=== PATIENT | male | born 1990 | race African-American/Black ===

== ENCOUNTER 2022-01-23 09:54 | Emergency (ER) | payer OTHER ==
[~2022-01-23] VITALS: Ht 170.2 cm; Wt 83.0 kg
[2022-01-23 10:15] VITALS: BP 139/84
[2022-01-23] MEDS ORDERED: ONDANSETRON ODT 4 MG TAB.RAPDIS PO ONE (10:30)
[2022-01-23] MEDS ORDERED: ONDA4TAB12 PO (11:23)
--- NOTE | 2022-01-23 11:24 | PHYS DOC ---
Past History Additional Past Medical Histor: PTSD, Lupos (CAMPOS MCNAIR APRN) Past Surgical History: No Surgical History (CAMPOS MCNAIR APRN) Alcohol Use: None (CAMPOS MCNAIR APRN) General Adult EDM: Chief Complaint: NAUSEA/VOMITING/DIARRHEA HPI: HPI: Patient is a 31-year-old male who presents with nausea and vomiting for 3 days. Patient was just recently used from assisted and moved into the [facility]. Patient states "whenever I get stressed out I will have episodes of nausea and vomiting". "My sister just a couple of days ago". Patient's been unable to keep down food but some liquids. Denies fever, abdominal pain, diarrhea. Patient is a history of lupus, schizophrenia, anxiety depression. (CAMPOS MCNAIR APRN) Review of Systems: Review of Systems: ROS At least 10 ROS systems have been reviewed and are negative except as documented in the HPI. General: Negative except as outlined in HPI above. Skin: Negative except as outlined in HPI above. HEENT: Negative except as outlined in HPI above. Neck: Negative except as outlined in HPI above. Respiratory: Negative except as outlined in HPI above.. Cardiovascular: Negative except as outlined in HPI above. Abdomen: Negative except as outlined in HPI above. : Negative except as outlined in HPI above. Back/MSK: Negative except as outlined in HPI above. Neuro: Negative except as outlined in HPI above. Psych: Negative except as outlined in HPI above. (CAMPOS MCNAIR APRN) Current Medications: Current Meds: Current Medications Medications (Trade) Dose Ordered Sig/Barbara Start Time Stop Time Status Last Admin Dose Admin Ondansetron HCl (Zofran Odt) 4 mg 1X ONCE 01/23/22 10:30 01/23/22 10:31 DC 01/23/22 10:26 4 MG (CAMPOS MCNAIR APRN) Allergies: Allergies: Allergies Coded Allergies Type Severity Reaction Last Updated Verified No Known Drug Allergies 01/23/22 No (CAMPOS MCNAIR APRN) Physical Exam: PE: Constitutional: Well developed, well nourished, no acute distress, non-toxic appearance. [] HENT: Normocephalic, atraumatic, bilateral external ears normal, oropharynx moist, no oral exudates, nose normal. [] Eyes: PERRLA, EOMI, conjunctiva normal, no discharge. [] Neck: Normal range of motion, no tenderness, supple, no stridor. [] Cardiovascular:Heart rate regular rhythm, no murmur [] Lungs & Thorax: Bilateral breath sounds clear to auscultation [] Abdomen: Bowel sounds normal, soft, no tenderness, no masses, no pulsatile masses. [] Skin: Warm, dry, no erythema, no rash. [] Back: No tenderness, no CVA tenderness. [] Extremities: No tenderness, no cyanosis, no clubbing, ROM intact, no edema. [] Neurologic: Alert and oriented X 3, normal motor function, normal sensory function, no focal deficits noted. [] Psychologic: Affect normal, judgement normal, mood normal. [] (CAMPOS MCNAIR APRN) Current Patient Data: Vital Signs: Vital Signs Date Time Temp Pulse Resp B/P (MAP) Pulse Ox O2 Delivery O2 Flow Rate FiO2 01/23/22 10:15 98.8 84 16 139/84 (102) 99 Room Air (CAMPOS MCNAIR APRN) EKG: EKG: [] (CAMPOS MCNAIR APRN) Radiology/Procedures: Radiology/Procedures: [] (CAMPOS MCNAIR APRN) Heart Score: C/O Chest Pain: No Risk Factors: Risk Factors: DM, Current or recent (<one month) smoker, HTN, HLP, family hi story of CAD, obesity. Risk Scores: Score 0 - 3: 2.5% MACE over next 6 weeks - Discharge Home Score 4 - 6: 20.3% MACE over next 6 weeks - Admit for Clinical Observation Score 7 - 10: 72.7% MACE over next 6 weeks - Early Invasive Strategies (CAMPOS MCNAIR APRN) Course & Med Decision Making: Course & Med Decision Making Pertinent Labs and Imaging studies reviewed. (See chart for details) [] 31-year-old male presents with nausea and vomiting for 3 days. Afebrile. Denies pain. Patient states that when he gets stressed out that he has episodes of vomiting. Patient sister 3 days ago and he also just moved into the [facility] from being released from assisted. Patient was given Zofran while in the ER which improved symptoms. Patient passed p.o. challenge. I sent patient home with Zofran. Patient's vomiting is most likely related to recent loss of his sister and changes with living situation. Patient also has history of schizophrenia, anxiety and depression. Discussed return precautions in length. Patient verbalized understanding of discharge instructions. (CAMPOS MCNAIR APRN) Course & Med Decision Making I was attending physician during date of service. LAP LAYER saw and treated patient independently. Although I was present in the department, no assistance was requested prior to patient departure. Electronically signed, Slim Renteria DO (SLIM RENTERIA DO) Elicia Disclaimer: Elicia Disclaimer: This electronic medical record was generated, in whole or in part, using a voice recognition dictation system. (CAMPOS MCNAIR APRN) Departure Departure: Impression: Primary Impression: Nausea and vomiting Qualified Codes: R11.2 - Nausea with vomiting, unspecified Disposition: 01 HOME / SELF CARE / HOMELESS Condition: STABLE Referrals: PCP,NO (PCP) Patient Instructions: Nausea and Vomiting, [id number] Additional Instructions: You were seen in the emergency room for nausea and vomiting. You were given Zofran while in the ER, which improved your symptoms. You were able to keep down fluids while in the ER. You home with a prescription for Zofran. Please take as directed. Please return to emergency room with worsening symptoms or concerns. EMERGENCY DEPARTMENT GENERAL DISCHARGE INSTRUCTIONS Thank you for coming to [facility] (ED) today and trusting us with you care. We trust that you had a positivie experience in our Emergency Department. If you wish to speak to the department management, you may call the director at [phone]. YOUR FOLLOW UP INSTRUCTIONS ARE FOLLOWS: 1. Do you have a private Doctor? If you do not have a private doctor, please ask for a resource list of physicians or clinics that may be able to assist you with follow up care. 2. The Emergency Physician has interpreted your x-rays. The X-Ray specialist will also review them. If there is a change in the findings, you will be notified in 48 hours when at all possible. 3. A lab test or culture has been done, your results will be reviewed and you will be notified if you need a change in treatment. ADDITIONAL INSTRUCTIONS AND INFORMATION: 1. Your care today has been supervised by a physician who is specially trained in emergency care. Many problems require more than one evaluation for a complete diagnosis and treatment. We recommend that you schedule your follow up appointment as recommended to ensure complete treatment of you illness or injury. If you are unable to obtain follow up care and continue to have a problem, or if your condition worsens, we recommend that you return to the ED. 2. We are not able to safely determine your condition over the phone nor are we able to give sound medical advice over the phone. For these safety reasons, if you call for medical advice we will ask you to come to the ED for further evaluation. 3. If you have any questions regarding these discharge instructions please call the ED at [phone]. SAFETY INFORMATION: In the interest of safety, wellness, and injury prevention; we encourage you to wear your sealbelt, if you smoke; quite smoking, and we encourage family to use a protec tive helmet for bicycling and other sporting events that present an increased risk for head injury. IF YOUR SYMPTOMS WORSEN OR NEW SYMPTOMS DEVELOP, OR YOU HAVE CONCERNS ABOUT YOUR CONDITION; OR IF YOUR CONDITION WORSENS WHILE YOU ARE WAITING FOR YOUR FOLLOW UP APPOINTMENT; EITHER CONTACT YOUR PRIMARY CARE DOCTOR, THE PHYSICIAN WHOSE NAME AND NUMBER YOU WERE GIVEN, OR RETURN TO THE ED IMMEDIATELY. Scripts Ondansetron (ONDANSETRON ODT) 4 Mg Tab.rapdis 1 TAB PO PRN Q6-8HRS PRN for NAUSEA/VOMITING, #16 TAB 0 Refills Prov: CAMPOS MCNAIR APRN 01/23/22 CAMPOS MCNAIR APRN Jan 23, 2022 11:24 SLIM RENTERIA DO Jan 27, 2022 11:32
== END 2022-01-23 11:30 | disposition home or self-care (01) ==
LOC: ER 09:54
DX: R11.2 Nausea with vomiting, unspecified (principal)
CPT/HCPCS: 99283; Q0162

== ENCOUNTER 2022-01-24 10:56 | Emergency (ER) | payer OTHER ==
[2022-01-23 10:15] VITALS: BP 139/84
[~2022-01-24] VITALS: Ht 170.2 cm; Wt 83.0 kg
[~2022-01-24 10:56] MED LIST: ONDA4TAB12 PO
--- NOTE | 2022-01-24 11:08 | PHYS DOC ---
Past History Additional Past Medical Histor: PTSD, Lupos (CMAPOS MCNAIR APRN) Past Surgical History: No Surgical History (CAMPOS MCNAIR APRN) Alcohol Use: None (CAMPOS MCNAIR APRN) General Adult EDM: Chief Complaint: NAUSEA/VOMITING/DIARRHEA HPI: HPI: Patient is a 31-year-old male presents with nausea and vomiting. Patient was seen here yesterday for same symptoms. Patient reports that Zofran helped with symptoms. Patient is currently living at the [facility] and states that they have not taken him to fish bait picker his Zofran prescription. Patient denies fevers, abdominal pain. No symptom changes from yesterday. Patient states he is here only to get nausea medication. (CAMPOS MCNAIR APRN) Review of Systems: Review of Systems: ROS At least 10 ROS systems have been reviewed and are negative except as documented in the HPI. General: Negative except as outlined in HPI above. Skin: Negative except as outlined in HPI above. HEENT: Negative except as outlined in HPI above. Neck: Negative except as outlined in HPI above. Respiratory: Negative except as outlined in HPI above.. Cardiovascular: Negative except as outlined in HPI above. Abdomen: Negative except as outlined in HPI above. : Negative except as outlined in HPI above. Back/MSK: Negative except as outlined in HPI above. Neuro: Negative except as outlined in HPI above. Psych: Negative except as outlined in HPI above. (CAMPOS MCNAIR APRN) Allergies: Allergies: Allergies Coded Allergies Type Severity Reaction Last Updated Verified No Known Drug Allergies 01/23/22 No (CAMPOS MCNAIR APRN) Physical Exam: PE: Constitutional: Well developed, well nourished, no acute distress, non-toxic appearance. [] HENT: Normocephalic, atraumatic, bilateral external ears normal, oropharynx moist, no oral exudates, nose normal. [] Eyes: PERRLA, EOMI, conjunctiva normal, no discharge. [] Neck: Normal range of motion, no tenderness, supple, no stridor. [] Cardiovascular:Heart rate regular rhythm, no murmur [] Lungs & Thorax: Bilateral breath sounds clear to auscultation [] Abdomen: Bowel sounds normal, soft, no tenderness Skin: Warm, dry, no erythema, no rash. [] Back: No tenderness, no CVA tenderness. [] Extremities: No tenderness, no cyanosis, no clubbing, ROM intact, no edema. [] Neurologic: Alert and oriented X 3, normal motor function, normal sensory function, no focal deficits noted. [] Psychologic: Affect normal, judgement normal, mood normal. [] (CAMPOS MCNAIR APRN) EKG: EKG: [] (CAMPOS MCNAIR APRN) Radiology/Procedures: Radiology/Procedures: [] (CAMPOS MCNAIR APRN) Heart Score: C/O Chest Pain: No Risk Factors: Risk Factors: DM, Current or recent (<one month) smoker, HTN, HLP, family history of CAD, obesity. Risk Scores: Score 0 - 3: 2.5% MACE over next 6 weeks - Discharge Home Score 4 - 6: 20.3% MACE over next 6 weeks - Admit for Clinical Observation Score 7 - 10: 72.7% MACE over next 6 weeks - Early Invasive Strategies (CAMPOS MCNAIR APRN) Course & Med Decision Making: Course & Med Decision Making Pertinent Labs and Imaging studies reviewed. (See chart for details) [] 31-year-old male presents with nausea and vomiting. Patient was also seen here yesterday and treated with Zofran and given a prescription for Zofran at home. Patient states that he has not been able to get anyone from the [facility] to fish bait picker his prescription. Patient denies any new symptoms or pain. Patient states he is here to be treated with nausea medication. Patient given Zofran while in the ER and also a starter pack until he can fish bait picker his prescription. Discussed return precautions with patient. (CAMPOS MCNAIR APRN) Dragon Disclaimer: Dragon Disclaimer: This electronic medical record was generated, in whole or in part, using a voice recognition dictation system. (CAMPOS MCNAIR APRN) Attending Co-Sign The patient was seen and interviewed as well as examined at the bedside. The chart was reviewed. The case was discussed. Agree with the plan of care. (XAVI GEORGE DO) Departure Departure: Impression: Primary Impression: Nausea & vomiting Qualified Codes: R11.2 - Nausea with vomiting, unspecified Disposition: HOME / SELF CARE / HOMELESS Condition: STABLE Referrals: PCP,KENZIE (PCP) Patient Instructions: Nausea and Vomiting Additional Instructions: You are seen emergency room for nausea and vomiting. Sending you home with a starter pack and taken fish bait picker your Zofran from the pharmacy. You were also given Zofran while in the ER. Return to the emergency room if you have worsening symptoms or concerns EMERGENCY DEPARTMENT GENERAL DISCHARGE INSTRUCTIONS Thank you for coming to [facility] (ED) today and trusting us with you care. We trust that you had a positivie experience in our Emergency Department. If you wish to speak to the department management, you may call the director at [phone]. YOUR FOLLOW UP INSTRUCTIONS ARE FOLLOWS: 1. Do you have a private Doctor? If you do not have a private doctor, please ask for a resource list of physicians or clinics that may be able to assist you with follow up care. 2. The Emergency Physician has interpreted your x-rays. The X-Ray specialist will also review them. If there is a change in the findings, you will be notified in 48 hours when at all possible. 3. A lab test or culture has been done, your results will be reviewed and you will be notified if you need a change in treatment. ADDITIONAL INSTRUCTIONS AND INFORMATION: 1. Your care today has been supervised by a physician who is specially trained in emergency care. Many problems require more than one evaluation for a complete diagnosis and treatment. We recommend that you schedule your follow up appointment as recommended to ensure complete treatment of you illness or injury. If you are unable to obtain follow up care and continue to have a problem, or if your condition worsens, we recommend that you return to the ED. 2. We are not able to safely determine your condition over the phone nor are we able to give sound medical advice over the phone. For these safety reasons, if you call for medical advice we will ask you to come to the ED for further evaluation. 3. If you have any questions regarding these discharge instructions please call the ED at [phone]. SAFETY INFORMATION: In the interest of safety, wellness, and injury prevention; we encourage you to wear your sealbelt, if you smoke; quite smoking, and we encourage family to use a protective helmet for bicycling and other sporting events that present an increased risk for head injury. IF YOUR SYMPTOMS WORSEN OR NEW SYMPTOMS DEVELOP, OR YOU HAVE CONCERNS ABOUT YOUR CONDITION; OR IF YOUR CONDITION WORSENS WHILE YOU ARE WAITING FOR YOUR FOLLOW UP APPOINTMENT; EITHER CONTACT YOUR PRIMARY CARE DOCTOR, THE PHYSICIAN WHOSE NAME AND NUMBER YOU WERE GIVEN, OR RETURN TO THE ED IMMEDIATELY. CAMPOS MCNAIR APRN Jan 24, 2022 11:08 XAVI GEORGE DO Jan 25, 2022 08:56
[2022-01-24] MEDS ORDERED: IBUPROFEN 600 MG TABLET. PO ONE ×2 (11:14→11:15)
[2022-01-24] MEDS ORDERED: ONDANSETRON 4MG ODT 4TABLET STARTPACK. PO ONE (11:15)
[2022-01-24] MEDS ORDERED: ONDANSETRON ODT 4 MG TAB.RAPDIS PO ONE (11:15)
[2022-01-25] MEDS ORDERED: PRAZ2CAP2 PO (20:30)
[2022-01-25] MEDS ORDERED: ALBU2.5V8 IH (20:30)
[2022-01-25] MEDS ORDERED: NAPR500T8 PO (20:30)
[2022-01-25] MEDS ORDERED: DULO30CA2 PO (20:30)
[2022-01-25] MEDS ORDERED: OMEP20CA16 PO (20:30)
[2022-01-25] MEDS ORDERED: PRAZ5CAP2 PO (20:30)
[2022-01-25] MEDS ORDERED: SERT100T PO (20:30)
[2022-01-25] MEDS ORDERED: QUET100T4 PO (20:30)
== END 2022-01-24 11:15 | disposition home or self-care (01) ==
LOC: ER 10:56
DX: R11.2 Nausea with vomiting, unspecified (principal)
CPT/HCPCS: 99284; Q0162

== ENCOUNTER 2022-01-24 20:09 | Inpatient (IN) | payer MEDICAID, OTHER ==
[~2022-01-24] VITALS: Ht 170.2 cm; Wt 76.3 kg
[2022-01-24 21:03] LABS: BASO % 0 % (0-3); EOS % 0 % (0-3); HEMATOCRIT 39.9 % (39.0-53.0); HEMOGLOBIN 13.1 g/dL (13.0-17.5); LYMPH # 0.8 x10^3/uL (1.0-4.8); LYMPH % 33 % (24-48); MEAN CORPUSCULAR HEMOGLOBIN 30 pg (25-35); MEAN CORPUSCULAR HGB CONC 33 g/dL (31-37); MEAN CORPUSCULAR VOLUME 92 fL (79-100); MONO # 0.6 x10^3/uL (0.0-1.1); MONO % 27 % (0-9); NEUT # 0.9 x10^3uL (1.8-7.7); NEUT % 39 % (31-73); PLATELET COUNT 142 x10^3/uL (140-400); RED BLOOD COUNT 4.34 x10^6/uL (4.30-5.70); RED CELL DISTRIBUTION WIDTH 14.1 % (11.5-14.5); WHITE BLOOD COUNT 2.3 x10^3/uL (4.0-11.0)
[2022-01-24 21:11] LABS: CALCIUM 9.2 mg/dL (8.5-10.1); CREATININE 0.7 mg/dL (0.7-1.3); GFR 157.2; POTASSIUM 3.8 mmol/L (3.5-5.1)
[2022-01-24 21:26] LABS: CLARITY,URINE CLEAR; COLOR,URINE YELLOW; GLUCOSE,URINE NEG (NEG)
[2022-01-24 21:27] LABS: BACTERIA,URINE 0 /HPF (0-FEW); BARBITURATES NEG (NEG); BENZODIAZEPINES NEG (NEG); CANNABINOIDS NEG (NEG); COCAINE NEG (NEG); METHADONE NEG (NEG); NITRITE,URINE NEG (NEG); OPIATES NEG (NEG); PHENCYCLIDINE NEG (NEG); RBC,URINE OCC /HPF (0-2); SQUAMOUS EPITHELIAL CELL,UR OCC /LPF; WBC,URINE 0 /HPF (0-4)
[2022-01-24 21:28] LABS: AMPHETAMINE/METHAMPHETAMINE NEG (NEG)
--- NOTE | 2022-01-24 21:29 | PHYS DOC ---
Past History Additional Past Medical Histor: night terrors, PTSD,shinglesx2, pericarditis,Lupus, racing thoughts (CAMPOS MCNAIR APRN) Past Surgical History: Other Additional Past Surgical Histo: bx of lymph nodes (CAMPOS MCNAIR APRN) Alcohol Use: Sober (CAMPOS MCNAIR APRN) General Adult EDM: Chief Complaint: SUICIDAL IDEATION HPI: HPI: Patient is a 31-year-old male who presents with suicidal ideation. Patient states that he has been sad about his son and his sister dying all day today. Patient states that he has a plan. Patient is going to jump off a bridge, suicide by patrol police sergeant, or shoot himself. Patient states has been very anxious and depressed. Patient is just released from care home and currently lives at the [facility]. Patient has been seen multiple times in the last couple of days for nausea and vomiting due to stress. Patient has history of anxiety, depression, PTSD. (CAMPOS MCNAIR APRN) Review of Systems: Review of Systems: ROS At least 10 ROS systems have been reviewed and are negative except as documented in the HPI. General: Negative except as outlined in HPI above. Skin: Negative except as outlined in HPI above. HEENT: Negative except as outlined in HPI above. Neck: Negative except as outlined in HPI above. Respiratory: Negative except as outlined in HPI above.. Cardiovascular: Negative except as outlined in HPI above. Abdomen: Negative except as outlined in HPI above. : Negative except as outlined in HPI above. Back/MSK: Negative except as outlined in HPI above. Neuro: Negative except as outlined in HPI above. Psych: Negative except as outlined in HPI above. (CAMPOS MCNAIR APRN) Allergies: Allergies: Allergies Coded Allergies Type Severity Reaction Last Updated Verified No Known Drug Allergies 01/24/22 No (CAMPOS MCNAIR APRN) Physical Exam: PE: Constitutional: Well developed, well nourished, no acute distress, non-toxic appearance. [] HENT: Normocephalic, atraumatic, bilateral external ears normal, oropharynx moist, no oral exudates, nose normal. [] Eyes: PERRLA, EOMI, conjunctiva normal, no discharge. [] Neck: Normal range of motion, no tenderness, supple, no stridor. [] Cardiovascular:Heart rate regular rhythm, no murmur [] Lungs & Thorax: Bilateral breath sounds clear to auscultation [] Abdomen: Bowel sounds normal, soft, no tenderness, no masses, no pulsatile masses. [] Skin: Warm, dry, no erythema, no rash. [] Back: No tenderness, no CVA tenderness. [] Extremities: No tenderness, no cyanosis, no clubbing, ROM intact, no edema. [] Neurologic: Alert and oriented X 3, normal motor function, normal sensory funct ion, no focal deficits noted. [] Psychologic: Abnormal judgment, anxious mood, tearful (CAMPOS MCNAIR EXPERIENCE DESIGN DIRECTOR) Current Patient Data: Labs: Laboratory Tests Test 01/24/22 20:40 White Blood Count 2.3 x10^3/uL (4.0-11.0) L Red Blood Count 4.34 x10^6/uL (4.30-5.70) Hemoglobin 13.1 g/dL (13.0-17.5) Hematocrit 39.9 % (39.0-53.0) Mean Corpuscular Volume 92 fL (79-100) Mean Corpuscular Hemoglobin 30 pg (25-35) Mean Corpuscular Hemoglobin Concent 33 g/dL (31-37) Red Cell Distribution Width 14.1 % (11.5-14.5) Platelet Count 142 x10^3/uL (140-400) Neutrophils (%) (Auto) 39 % (31-73) Lymphocytes (%) (Auto) 33 % (24-48) Monocytes (%) (Auto) 27 % (0-9) H Eosinophils (%) (Auto) 0 % (0-3) Basophils (%) (Auto) 0 % (0-3) Neutrophils # (Auto) 0.9 x10^3uL (1.8-7.7) L Lymphocytes # (Auto) 0.8 x10^3/uL (1.0-4.8) L Monocytes # (Auto) 0.6 x10^3/uL (0.0-1.1) Eosinophils # (Auto) 0.0 x10^3/uL (0.0-0.7) Basophils # (Auto) 0.0 x10^3/uL (0.0-0.2) Platelet Estimate Pending Sodium Level 141 mmol/L (136-145) Potassium Level 3.8 mmol/L (3.5-5.1) Chloride Level 103 mmol/L (98-107) Carbon Dioxide Level 29 mmol/L (21-32) Anion Gap 9 (6-14) Blood Urea Nitrogen 10 mg/dL (8-26) Creatinine 0.7 mg/dL (0.7-1.3) Estimated GFR (Cockcroft-Gault) 157.2 Glucose Level 68 mg/dL (70-99) L Calcium Level 9.2 mg/dL (8.5-10.1) SARS-CoV-2 Antigen (Rapid) Negative (NEGATIVE) Vital Signs: Vital Signs Date Time Temp Pulse Resp B/P (MAP) Pulse Ox O2 Delivery O2 Flow Rate FiO2 01/24/22 20:10 98.6 88 20 128/48 (74) 98 Room Air (CAMPOS MCNAIR APRN) EKG: EKG: [] (CAMPOS MCNAIR APRN) EKG: My interpretation EKG shows a sinus rhythm at 81 bpm. Does have some left axis changes and ST morphology. No findings of acute STEMI with contralateral changes. But would consider this an abnormal EKG time of EKG is 2151 hrs. (COCO SHEETS MD) Radiology/Procedures: Radiology/Procedures: [] (CAMPOS MCNAIR APRN) Heart Score: C/O Chest Pain: No Risk Factors: Risk Factors: DM, Current or recent (<one month) smoker, HTN, HLP, family history of CAD, obesity. Risk Scores: Score 0 - 3: 2.5% MACE over next 6 weeks - Discharge Home Score 4 - 6: 20.3% MACE over next 6 weeks - Admit for Clinical Observation Score 7 - 10: 72.7% MACE over next 6 weeks - Early Invasive Strategies (CAMPOS MCNAIR APRN) C/O Chest Pain: No HEART Score for Chest Pain: HEART Score for Chest Pain Response (Comments) Value History Slighlty/Non-Suspicious 0 ECG Nonspecific Repolarizatio 1 Age < 45 0 Risk Factors 1 or 2 Risk Factors 1 Troponin < Normal Limit 0 Total 2 (COCO SHEETS MD) Course & Med Decision Making: Course & Med Decision Making Pertinent Labs and Imaging studies reviewed. (See chart for details) [] 31-year-old male presents with suicidal ideation. Patient states that he has [address] himself[address] He is either going to jump off a bridge, by suicide by patrol police sergeant, shoot himself. Work-up in ER consisted of labs, urinalysis, drug screen, EKG, Covid testing, PAT consult. Transfer of patient care to Dr. Sheets at 2130. (CAMPOS MCNAIR APRN) Course & Med Decision Making See Serenity Report for detail s prior shift change. See PAT eval. Awaiting PCR for COVID Endorsed to Dr. George at shift change. Addendum history-patient resident of [facility]-patient reports he had several deaths in the family . Sister was murdered a week ago and he has had marked insomnia since her .Pt. reports his mother was showing him autopsy pictures of his sister . This caused him to become severely depressed and could not get the pictures out of his mind. Patient son in 2012 when his reportedly intentionally drowned him in the bathtub. Patient also had a brother in 2014 that he was very attached . Patient developing plans of suicide by [place]. Shoot himself in the head or having the police kill him in a standoff. Patient currently serving a care home term. Patient denies any new medications. At been at [facility] the pas 1 1/2weeks. ( [facility]). Has one prior suicide attempt by cutting his wrists at the time of his son's . Impression: 1. Depression 2. Suicidal ideation 3. History of anxiety 4. Hx. Polysubstance Abuse 5. Hx. of Lupus 6. Hx. Asthma 7. Grief 8. Hx Anxiety 9. Hx. PTSD 10. Insomnia (COCO SHEETS MD) Course & Med Decision Making During my shift, the patient began to feel feverish and have some body aches. He also had some heartburn the patient's PCR Covid test came back positive. He has not previously tested positive for COVID-19. He is fully vaccinated. He cannot go to a psychiatric facility. The PAT team reevaluated him and he is still concerned about his suicidal thoughts and the chance that he might hurt himself. I will admit him to the hospital for COVID-19 and then we will reestablish placement for psychiatric admission. Spoke with Dr. Rush and he has accepted the patient at 1745. (XAVI GEORGE DO) Dragon Disclaimer: Dragon Disclaimer: This electronic medical record was generated, in whole or in part, using a voice recognition dictation system. (CAMPOS MCNAIR APRN) Departure Departure: Impression: Primary Impression: Suicidal ideation Additional Impression: COVID-19 Disposition: 09 ADMITTED INPATIENT Admitting Physician: Ritchie Roberson (XAVI GEORGE DO) Referrals: PCP,NO (PCP) Dragon Disclaimer This chart was dictated in whole or in part using Voice Recognition software in a busy, high-work load, and often noisy Emergency Department environment. It may contain unintended and wholly unrecognized errors or omissions. (COCO SHEETS MD) Dragon Disclaimer This chart was dictated in whole or in part using Voice Recognition software in a busy, high-work load, and often noisy Emergency Department environment. It may contain unintended and wholly unrecognized errors or omissions. (COCO SHEETS MD) Dragon Disclaimer This chart was dictated in whole or in part using Voice Recognition software in a busy, high-work load, and often noisy Emergency Department environment. It may contain unintended and wholly unrecognized errors or omissions. (COCO SHEETS MD) Attending Signature Attending Signature I have participated in the care of this patient and I have reviewed and agree with all pertinent clinical information above including history, exam, and recommendations. (COCO SHEETS MD) Attending Signature Attending Signature I have participated in the care of this patient and I have reviewed and agree with all pertinent clinical information above including history, exam, and recommendations. (COCO SHEETS MD) CAMPOS MCNAIR APRN Jan 24, 2022 21:29 COCO SHEETS MD Jan 25, 2022 04:27 XAVI GEORGE DO Jan 25, 2022 17:48
[2022-01-24 21:35] LABS: % LYMPHS 36 % (24-48); % MONOS 20 % (0-10); % SEGS 44 % (35-66); PLT ESTIMATE DECREASED (ADEQUATE)
--- NOTE | 2022-01-25 06:48 | EKG ---
[address] [address] Test Date: 2022-01-24 Test Time: 21:51:33 Pat Name: CAROLINA ESCOBEDO Department: Room: Gender: M Home Health Assistant: : 1990 Requested By: CAMPOS MCNAIR Order Number: [id number] Reading MD: Mehran Becker MD Measurements Intervals [place] Rate: 81 P: 34 RI: 152 QRS: -24 QRSD: 80 T: 36 QT: 346 QTc: 402 Interpretive Statements SINUS RHYTHM Electronically Signed On 01-27-2022 10:17:13 TOOTH CUTTER by Mehran Becker MD
[2022-01-25] MEDS ORDERED: FAMOTIDINE 20 MG TABLET PO ONE (15:45)
[2022-01-25] MEDS: CALCIUM CARBONATE 500 MG TAB.CHEW PO PRN (16:19)
[2022-01-25] MEDS ORDERED: ACETAMINOPHEN 500 MG TABLET PO ONE (17:00)
[2022-01-25] MEDS ORDERED: ONDANSETRON PF 4 MG/2 ML VIAL. IVP PRN (17:45)
[2022-01-25] MEDS ORDERED: IV RINGERS SOLUTION,LACTATED 1,000 ML IV ONE (18:15)
[2022-01-25] MEDS ORDERED: ALBU2.5V8 IH (20:30)
[2022-01-25] MEDS ORDERED: NAPR500T8 PO (20:30)
[2022-01-25] MEDS ORDERED: SERT100T PO (20:30)
[2022-01-25] MEDS ORDERED: PRAZ5CAP2 PO (20:30)
[2022-01-25] MEDS ORDERED: DULO30CA2 PO (20:30)
[2022-01-25] MEDS ORDERED: OMEP20CA16 PO (20:30)
[2022-01-25] MEDS ORDERED: QUET100T4 PO (20:30)
[2022-01-25] MEDS ORDERED: PRAZ2CAP2 PO (20:30)
[2022-01-25 20:43] VITALS: BP 112/78
[2022-01-25] MEDS: QUEtiapine 100 MG TABLET. PO SCH (22:10)
[2022-01-25 23:03] VITALS: BP 113/70
[2022-01-26] MEDS ORDERED: ONDANSETRON ODT 4 MG TAB.RAPDIS PO PRN (05:45)
[2022-01-26 06:34] VITALS: BP 100/61
[2022-01-26] MEDS: DULoxetine HCL 30 MG CAPSULE.DR PO SCH (07:21)
[2022-01-26] MEDS: ACETAMINOPHEN 325 MG TABLET PO PRN ×2 (07:35→13:42)
[2022-01-26 11:25] VITALS: BP 96/65
--- NOTE | 2022-01-26 11:32 | HP ---
DATE OF SERVICE: 01/26/2022 ADMIT DATE: 01/25/2022 ATTENDING PHYSICIAN: Dr. Roberson. CHIEF COMPLAINT: Suicidal ideation. HISTORY OF PRESENT ILLNESS: The patient is a 31-year-old gentleman with a longstanding psychiatric history of depression and posttraumatic stress disorder. He has had suicidal ideation, very depressed and despondent. He was lamenting about his son dying and his sister dying recently, I do not have the details as a cause of that. He had these ideas either thinking jumping off a bridge, approaching a ventilation mechanic to suicide by helicopter technician, or just shooting himself. He has through with this. There is no drugs involved. He was recently released from long-term, currently staying at the [facility], a half-way [place]. He has been seen multiple times in the ED with anxiety and stress-related issues. PAST MEDICAL HISTORY: Significant for pericarditis. He has had night terrors, PTSD, shingles and questionable history of lupus. He has had suicidal ideation. ALLERGIES: He has no known drug allergies. CURRENT MEDICATIONS: Reviewed, whether he is compliant or not remains to be seen. He was scheduled to have albuterol, Cymbalta 30 mg daily, Naprosyn, prazosin, Seroquel and Zoloft. I am not sure why he is on 2 separate SSRIs. SOCIAL HISTORY: He is a smoker. There is a history of recreational drug use, not currently. FAMILY HISTORY: Noncontributory. REVIEW OF SYSTEMS: Significant for the suicidal ideation. He was scheduled to go to an inpatient psychiatric unit, but he tested positive for coronavirus. He has had vaccination supposedly. He had the Omicron variant. He is asymptomatic. He does not require supplemental oxygen. There is no pulmonary involvement at this time. PHYSICAL EXAMINATION: GENERAL: When I saw him, this is a pleasant young male with a flat affect. INITIAL VITAL SIGNS: Showed a blood pressure 113/70. He is afebrile. Oxygen saturation 92% on room air. HEENT: Head is without trauma. Pupils are reactive. Sclerae nonicteric. Oropharynx is clear. NECK: Supple, no bruits. LUNGS: Clear. CARDIOVASCULAR: Regular heart tones. ABDOMEN: Soft. EXTREMITIES: Without edema. NEUROLOGIC: Focally intact. Speech is fluent. In taking the history, the patient still feels despondent, although he has no active suicidal ideation at this time. ASSESSMENT: 1. A 31-year-old gentleman with major depression. 2. Suicidal ideation. 3. History of posttraumatic stress disorder. 4. Recent incarceration. He is at a half-way house. PLAN: 1. Observation status. 2. He has not been treated for his coronavirus, as he is asymptomatic. 3. ____. He needs to go to inpatient psych unit, but the deal-breaker is coronavirus status. If the [facility] can take him back for quarantine, then he can be admitted from there. If this is safe discharge plan, I will ask ____ to see him again today. TIANA/RAMONA DR: Jimena TID: [id number]
[2022-01-26 16:07] VITALS: BP 100/66
[2022-01-26] MEDS: CALCIUM CARBONATE 500 MG TAB.CHEW PO PRN (17:14)
[2022-01-26 18:23] VITALS: BP 107/70
[2022-01-26] MEDS: QUEtiapine 100 MG TABLET. PO SCH (20:29)
[2022-01-27 05:42] VITALS: BP 95/64
[2022-01-27] MEDS: DULoxetine HCL 30 MG CAPSULE.DR PO SCH (08:46)
[2022-01-27] MEDS: CALCIUM CARBONATE 500 MG TAB.CHEW PO PRN ×2 (12:10→21:02)
[2022-01-27 19:00] VITALS: BP 110/70
[2022-01-27] MEDS: QUEtiapine 100 MG TABLET. PO SCH (21:00)
--- NOTE | 2022-01-27 23:27 | PN ---
DATE: 01/27/2022 ATTENDING PHYSICIAN: Dr. Roberson. SUBJECTIVE: The patient is alert, responsive. He has a flat affect. He tells me that now he does not have any suicidal ideations; however, he did exhibit and stated he was despondent earlier this morning. The PAT team has not assessed him yet today. OBJECTIVE FINDINGS: VITAL SIGNS: Blood pressure is 95/60, pulse is regular. He is afebrile. Oxygen saturations were 95% on room air. HEENT: Head is without trauma. Pupils are reactive. Sclerae nonicteric. Oropharynx is clear. NECK: Supple. LUNGS: Clear. CARDIOVASCULAR: Showed regular heart tones. ABDOMEN: Soft. EXTREMITIES: Without edema. NEUROLOGIC: Focally intact. Speech is fluent. Affect remains flat. ASSESSMENT: 1. A 31-year-old gentleman with suicidal ideation. 2. Major depression. 3. Posttraumatic stress disorder. 4. Recent incarceration. He is in a alf house. PLAN: 1. We will ask the PAT team to assess him today. 2. If he is not actively suicidal, I can release him back to the [facility]. 3. For inpatient psychiatric care, the deal breaker right now is his COVID status. He is ____ symptomatic from his COVID infection. CHARANJIT/XAVIER DR: ALONDRA/joan TID: [id number]
[2022-01-28 06:00] VITALS: BP 105/72
[2022-01-28] MEDS: DULoxetine HCL 30 MG CAPSULE.DR PO SCH (08:19)
[2022-01-28] MEDS: CALCIUM CARBONATE 500 MG TAB.CHEW PO PRN (08:19)
--- NOTE | 2022-01-28 09:38 | DS ---
DATE OF DISCHARGE: 01/28/2022 ATTENDING PHYSICIAN: Dr. Roberson. FINAL DISCHARGE DIAGNOSES: 1. A 31-year-old gentleman with depression. 2. Suicidal ideation, resolved. 3. History of posttraumatic stress disorder. 4. Recent incarceration. He is at the [facility] [place]. HISTORY AND PHYSICAL: The patient is a 31-year-old gentleman who was despondent over personal issues. He had suicidal ideations. He was admitted for further treatment and evaluation. The deal-breaker. He also tested positive for coronavirus, although he was asymptomatic. PHYSICAL EXAMINATION: Please see my dictated note. PERTINENT LABORATORY AND X-RAY STUDIES: Hemoglobin 13.1 g/dL, white count 2300. Electrolytes within normal range. Troponin levels were negative. Urinalysis was clear. Toxicology screen negative. Serology positive for coronavirus. COURSE IN THE HOSPITAL: He was admitted to the hospital. He did not require any treatment of supplemental oxygen for his coronavirus as he was asymptomatic. He had a personal rhic systems safety engineer for the first 2 days. The psychiatric assessment team saw him and their recommendation is on the chart. At this time, the [facility] will not take him back. The inpatient psychiatric units will not take him because of the COVID status, but he improved and he adamantly stated he was not suicidal. He has some family and friends that he can stay with. On the fourth hospital day, he was discharged from our hospital in stable condition with explicit drug and followup care through the [facility] and with PA team. Please refer to the dictated note. He reassured us he was not suicidal. The patient was then discharged from our hospital in stable condition with explicit drug and followup care. I did recommend to continue the Cyalta. JUAN PABLO BRITO: Jimena TID: [id number]
== END 2022-01-28 11:21 | disposition home or self-care (01) | DRG 881 ==
LOC: ER 20:09 → ER HOLD 01-25 17:43 → 1 SOUTH 01-25 19:32
PROVIDERS: ADMIT Hospitalist; ATTEND Hospitalist
DX: F32.9 Major depressive disorder, single episode, unspecified (principal); U07.1 COVID-19; R45.851 Suicidal ideations; F17.200 Nicotine dependence, unspecified, uncomplicated; F43.10 Post-traumatic stress disorder, unspecified; G47.00 Insomnia, unspecified; J45.909 Unspecified asthma, uncomplicated
CPT/HCPCS: 36415; 80048; 80307; 81001; 82550; 84484; 85007; 85025; 86140; 87426; 93005; Q0162; U0003; 99285-25